=== PATIENT | male | born 1955 | race Caucasian/White ===

== ENCOUNTER → 2016-04-19 | Outpatient (CLI) | payer BC | LOC: RAD 15:51 | PROVIDERS: ATTEND Podiatrist Foot & Ankle Surgery | DX: R22.41 Localized swelling, mass and lump, right lower limb (principal); M19.072 Primary osteoarthritis, left ankle and foot; M19.071 Primary osteoarthritis, right ankle and foot; R22.43 Localized swelling, mass and lump, lower limb, bilateral ==

== ENCOUNTER 2016-05-06 09:15 | Day surgery (SDC) | payer BC ==
[2016-05-04 09:13] LABS: APPEARANCE,URINE CLEAR; BILIRUBIN,URINE NEGATIVE (NEGATIVE); GLUCOSE, URINE NEGATIVE (NEGATIVE); KETONES,URINE NEGATIVE (NEGATIVE); LEUKOCYTE ESTERASE,URINE NEGATIVE (NEGATIVE); NITRITE,URINE NEGATIVE (NEGATIVE); PROTEIN,URINE NEGATIVE (NEGATIVE); URINE SPECIFIC GRAVITY 1.015; UROBILINOGEN,URINE NEGATIVE mg/dL (<2.0)
[2016-05-04 09:14] LABS: ABSOLUTE EOSINOPHILS # (AUTO) 0.1 10^3/uL (0.0-0.6); ABSOLUTE LYMPHOCYTES (AUTO) 2.2 10^3/uL (0.5-4.7); ABSOLUTE MONOCYTES (AUTO) 0.7 10^3/uL (0.1-1.4); ABSOLUTE NEUT (AUTO) 3.5 10^3/uL (1.7-8.2); BASOPHILS % (AUTO) 0.5 % (0-2); HEMATOCRIT 48.1 % (37.9-51.0); HEMOGLOBIN 15.6 g/dL (13.5-17.0); HGB HCT DIFFERENCE -1.3; LYMPHOCYTES % (AUTO) 33.5 % (13-45); MEAN CORPUSCULAR HEMOGLOBIN 29.4 pg (27.0-33.4); MEAN CORPUSCULAR HGB CONC 32.5 g/dL (32.0-36.0); MEAN CORPUSCULAR VOLUME 90 fl (80-97); MONOCYTES % (AUTO) 10.1 % (3-13); RED BLOOD COUNT 5.33 10^6/uL (4.35-5.55); RED CELL DISTRIBUTION WIDTH 13.8 % (11.5-14.0); SEGMENTED NEUTROPHILS % (AUTO) 53.9 % (42-78); WHITE BLOOD COUNT 6.6 10^3/uL (4.0-10.5)
[~2016-05-06 09:15] MED LIST: CLINDAMYCIN 600 MG/D5W RTU 600 MG/50 ML RTUPB IV PRN; FENTANYL CITRATE INJ/PF 100 MCG/2 ML AMPUL ONE; MIDAZOLAM 2 MG/2 ML INJ ONE; PROPOFOL INJ 200 MG/20 ML VIAL IV ONE; RINGERS SOLUTION,LACTATED 1,000 ML IV PRN
[2016-05-06] MEDS ORDERED: LIDOCAINE 2% INJ (20 MG/ML) 20 ML MDV ONE (10:27)
[2016-05-06] MEDS ORDERED: BUPIVACAINE HCL 0.5 % INJ/PF 30 ML SDV ONE (10:27)
--- NOTE | 2016-05-06 12:54 | [facility] OPERATIVE REPORT E ---
[facility] Operative Report NAME: JUN STARK AGE: 61Y DATE OF SURGERY: 05/06/2016 ROOM: PREOPERATIVE DIAGNOSIS: PLANTAR FIBROMATOMA RIGHT FOOT. POSTOPERATIVE DIAGNOSIS: PLANTAR FIBROMATOMA RIGHT FOOT. OPERATION: Excision of multiple plantar fibromatomas right foot. SURGEON: JESSICA SHARP D.P.M. INTRAOPERATIVE FINDINGS: Indicated 3 relatively large plantar fibromatomas located in a row on the medial band of the plantar fascia. The first one was located slightly proximal from the plantar first metatarsophalangeal joint. The second one was located about 3 cm more proximal and the third one was almost adjacent to the second plantar fibromatoma. Intraoperative findings were confirmed clinically and radiographically. PROCEDURE: With the patient lying in the dorsal recumbent position, the right foot and leg were prepped and draped in the usual standard sterile orthopedic manner after the local anesthesia was administered which was a posterior tibial block at the level of the right ankle. After the anesthetic effect was accomplished, the right leg was elevated for approximately 2 minutes' of time and the right ankle pneumatic tourniquet was inflated up to 250 mmHg after the blood was exsanguinated from the right foot. The right leg was brought to the level of the table. Attention was directed to the plantar aspect of the right foot. The 3 isolated fibrous tumors were marked and the incision was placed in such a way so I could reach the 3 fibrous tumors through the same incision. The initial incision was deepened. The superficial and deep subcutaneous tissues were dissected via blunt and sharp dissection. At this point, all bleeders were ligated and the plantar fascia was visualized with the presence of the 3 fibrous tumors. Very carefully, the most distal one was removed first, after that the medial fibrous tumor and finally, the more proximal fibrous tumors were removed as well. The 3 tumors were excised in toto. After that, the plantar fascia was evaluated. It appeared to be clean of any additional pathological tissue. At this point, the right ankle pneumatic tourniquet was deflated. Circulation returned to normal immediately as the normal digital color and temperature became apparent. After that, the surgical area was irrigated with copious amounts of sterile saline solution. The subcutaneous tissues from deep to superficial were closed with 3-0 Vicryl. The skin edges were repositioned and closed with 4-0 nylon using continuous interlocked stitch. A Betadine compression dressing was applied around the right foot, which was followed with Luis bandage and a surgical shoe. This patient tolerated the procedures well and left the operating room with stable vital signs and in good condition. The patient was taken to the recovery room alert, conscious and oriented. There are no permanent disabilities anticipated at this time. DICTATING PHYSICIAN: JESSICA SHARP D.P.M. [id number] PHY#: [id number] ID: [id number] JOB#: [id number] ACCT: [id number] cc:JESSICA SHARP D.P.M. >
== END 2016-05-06 12:50 | disposition home or self-care (01) ==
LOC: SC 09:15
PROVIDERS: ATTEND Podiatrist Foot & Ankle Surgery
PROC: 0JBQ0ZZ Excision of Right Foot Subcutaneous Tissue and Fascia, Open Approach (ICD-10-PCS; principal; 2016-05-06 10:30)
DX: M72.2 Plantar fascial fibromatosis (principal); M10.9 Gout, unspecified; E11.9 Type 2 diabetes mellitus without complications; Z88.0 Allergy status to penicillin; Z79.899 Other long term (current) drug therapy
CPT/HCPCS: 36415; 85025; 81001; 88305 ×2; 28043; J2250; J3490; J3010; J2704; 400